=== PATIENT | male | born 1955 | race Caucasian/White ===

== ENCOUNTER 2018-10-05 07:27 | Day surgery (SDC) | payer BC ==
[2018-10-05] MEDS ORDERED: PROPOFOL 40 ML (09:12)
== END 2018-10-05 14:30 | disposition home or self-care (01) ==
LOC: GIL 07:27
DX: Z12.11 Encounter for screening for malignant neoplasm of colon (principal); D12.2 Benign neoplasm of ascending colon; D12.0 Benign neoplasm of cecum; D12.5 Benign neoplasm of sigmoid colon; I10 Essential (primary) hypertension; E11.9 Type 2 diabetes mellitus without complications
CPT/HCPCS: 45380; 82962; 88305